=== PATIENT | female | born 1965 | race African-American/Black ===

== ENCOUNTER 2024-08-20 01:24 | Emergency (ER) | payer SELFPAY ==
[~2024-08-20] VITALS: Ht 165.1 cm; Wt 94.0 kg
[2024-08-20 01:32] VITALS: O2SAT 99
[2024-08-20 02:00] VITALS: TEMP 36.7
[2024-08-20 02:16] LABS: BASOPHILS % 1.3 % (0.0-2.0); EOSINOPHILS % 4.3 % (0.0-5.0); HEMATOCRIT. 39.4 % (36.0-48.0); HEMOGLOBIN. 13.2 g/dL (12.0-16.0); LYMPHOCYTES % 31.2 % (20.0-50.0); MEAN PLATELET VOLUME 9.2 fl (7.4-10.4); MONOCYTES % 7.6 % (2.0-8.0); NEUTROPHILS % 55.6 % (40.0-76.0); PLATELET 238 x1000/uL (130-400); RED BLOOD CELL COUNT 4.36 mill/uL (4.2-5.4); RED CELL DISTRIBUTION WIDTH 13.9 % (11.6-14.6)
[2024-08-20 02:28] LABS: CREATININE 1.1 mg/dL (0.6-1.0); UREA NITROGEN BLOOD 26 mg/dL (9-23)
[2024-08-20 02:30] VITALS: BP 139/62; PULSE 70; RESP 17; O2SAT 100
[2024-08-20] MEDS: ASPIRIN 81MG TABLET PO ONE (02:41)
[2024-08-20 02:58] LABS: TROPONIN I HIGH SENSITIVITY 10 ng/L (3.0-34)
== END 2024-08-20 03:23 | disposition home or self-care (01) ==
LOC: ER 01:24 → EDBEDREQTM 02:41 → EDBEDREQ 02:41 → ENRESERV 03:02 → ER 03:23
DX: R07.9 Chest pain, unspecified (principal); E11.9 Type 2 diabetes mellitus without complications; I10 Essential (primary) hypertension; Z90.49 Acquired absence of other specified parts of digestive tract; Z86.73 Personal history of transient ischemic attack (TIA), and cerebral infarction without residual deficits; Z88.0 Allergy status to penicillin
CPT/HCPCS: 80048; 85025; 84484; 36415; 71045; 93005; 99285; Z7610 ×3; A4606